=== PATIENT | female | born 1950 | race Caucasian/White ===

== ENCOUNTER → 2017-06-19 | Outpatient (CLI) | payer MEDICARE, OTHER ==
[~2017-06-19] MED LIST: ALPHA LIPOIC A200 M2 PO; BACTROBAN OINT22 GM PO; CALCIUM CITRATE1 TA7 PO; CARAFATE1 G1 PO; CITALOPRAM10 MG PO; CLARITIN10 MG PO; DAYPRO600 M1 PO; KEFLEX500 MG PO; MECLIZINE HCL25 M2 PO; MOTRIN800 MG PO; NATURE'S BLEN200 MCG PO; PROTONIX40 MG PO; PROVENTIL0.09 MG/AC IH; RILUTEK50 M1 PO; VITAMIN C500 M4 PO; VITAMIN E400 UNI1 PO; ZITHROMAX Z PA250 MG PO
== END | disposition home or self-care (01) ==
LOC: MAMMO 12:12
DX: Z12.31 Encounter for screening mammogram for malignant neoplasm of breast (principal)

== ENCOUNTER → 2017-08-26 | Outpatient (CLI) | payer MEDICARE, OTHER | END | disposition home or self-care (01) | LOC: US 09:45 | DX: N60.01 Solitary cyst of right breast (principal); N63.10 Unspecified lump in the right breast, unspecified quadrant ==

== ENCOUNTER 2018-11-24 12:46 | Emergency (ER) | payer MEDICARE, OTHER ==
[~2018-11-24] VITALS: Ht 170.1 cm; Wt 93.0 kg
== END 2018-11-24 16:00 | disposition home or self-care (01) ==
LOC: ED 12:46
DX: S93.491A Sprain of other ligament of right ankle, initial encounter (principal); Z98.51 Tubal ligation status; Z98.890 Other specified postprocedural states; Z79.899 Other long term (current) drug therapy; Z88.0 Allergy status to penicillin; W19.XXXA Unspecified fall, initial encounter; Y93.89 Activity, other specified; Y92.89 Other specified places as the place of occurrence of the external cause; Y99.9 Unspecified external cause status

== ENCOUNTER 2020-05-20 05:37 | Emergency (ER) | payer MEDICARE, OTHER ==
[~2020-05-20] VITALS: Ht 172.7 cm; Wt 90.7 kg
[2020-05-20] MEDS ORDERED: VIBRAMYCIN100 MG PO (06:25)
== END 2020-05-20 06:53 | disposition home or self-care (01) ==
LOC: ED 05:37
DX: S61.411A Laceration without foreign body of right hand, initial encounter (principal); K21.9 Gastro-esophageal reflux disease without esophagitis; I10 Essential (primary) hypertension; Z88.0 Allergy status to penicillin; Z79.899 Other long term (current) drug therapy

== ENCOUNTER 2020-05-23 11:38 | Emergency (ER) | payer MEDICARE, OTHER ==
[~2020-05-23] VITALS: Wt 90.7 kg
[~2020-05-23 11:38] MED LIST changes: +VIBRAMYCIN100 MG PO
== END 2020-05-23 14:17 | disposition home or self-care (01) ==
LOC: ED 11:38
DX: S60.221A Contusion of right hand, initial encounter (principal); I10 Essential (primary) hypertension; K21.9 Gastro-esophageal reflux disease without esophagitis; Z88.0 Allergy status to penicillin; Z79.899 Other long term (current) drug therapy; Z48.00 Encounter for change or removal of nonsurgical wound dressing; W18.39XA Other fall on same level, initial encounter; Y93.89 Activity, other specified; Y92.89 Other specified places as the place of occurrence of the external cause; Y99.8 Other external cause status

== ENCOUNTER → 2021-05-16 | Outpatient (CLI) | payer MEDICARE, OTHER | END | disposition home or self-care (01) | LOC: US 08:54 | PROVIDERS: ATTEND Surgery Vascular Surgery | DX: I65.23 Occlusion and stenosis of bilateral carotid arteries (principal); I65.1 Occlusion and stenosis of basilar artery; I65.03 Occlusion and stenosis of bilateral vertebral arteries ==

== ENCOUNTER 2024-07-02 22:20 | Emergency (ER) | payer MEDICARE, OTHER ==
[~2024-07-02] VITALS: Ht 172.7 cm; Wt 77.1 kg
[2024-07-02] MEDS ORDERED: HYDROmorphONE Hydrochloride 0.5 MG/0.5 ML SYRINGE IM ONE (23:55)
[2024-07-03] MEDS ORDERED: TRAMADOL HCL50 MG PO (03:45)
== END 2024-07-03 04:03 | disposition home or self-care (01) ==
LOC: ED 22:20
DX: M54.50 Low back pain, unspecified (principal); I10 Essential (primary) hypertension; K21.9 Gastro-esophageal reflux disease without esophagitis; Z88.0 Allergy status to penicillin; Z98.51 Tubal ligation status; Z98.890 Other specified postprocedural states

== ENCOUNTER 2024-09-23 09:42 | Emergency (ER) | payer MEDICARE, OTHER ==
[~2024-09-23] VITALS: Wt 77.1 kg
[~2024-09-23 09:42] MED LIST changes: +TRAMADOL HCL50 MG PO
[2024-09-23] MEDS ORDERED: Acetaminophen/Oxycodone 5 MG/325 MG TABLET PO ONE (10:00)
== END 2024-09-23 11:23 | disposition home or self-care (01) ==
LOC: ED 09:42
DX: S93.401A Sprain of unspecified ligament of right ankle, initial encounter (principal); F03.90 Unspecified dementia, unspecified severity, without behavioral disturbance, psychotic disturbance, mood disturbance, and anxiety; I10 Essential (primary) hypertension; K21.9 Gastro-esophageal reflux disease without esophagitis; Z88.0 Allergy status to penicillin; Z98.890 Other specified postprocedural states; W19.XXXA Unspecified fall, initial encounter; Y93.89 Activity, other specified; Y92.002 Bathroom of unspecified non-institutional (private) residence as the place of occurrence of the external cause; Y99.8 Other external cause status